=== PATIENT | female | born 1965 | race Two or more races ===

== ENCOUNTER 2018-02-21 12:29 | Outpatient (CLI) | payer OTHER | END 2018-02-21 12:51 | disposition home or self-care (01) | LOC: MAMO-SONO 12:29 | DX: Z12.31 Encounter for screening mammogram for malignant neoplasm of breast (principal); E66.8 Other obesity; E03.8 Other specified hypothyroidism; I10 Essential (primary) hypertension ==

== ENCOUNTER 2020-06-07 10:39 | Outpatient (CLI) | payer OTHER | END 2020-06-07 11:31 | disposition home or self-care (01) | LOC: TOM 10:39 | PROVIDERS: ATTEND Internal Medicine Sports Medicine | DX: Q33.0 Congenital cystic lung (principal); N64.59 Other signs and symptoms in breast; C73 Malignant neoplasm of thyroid gland; R05 Cough ==

== ENCOUNTER → 2020-11-05 08:00 | Outpatient (CLI) | payer OTHER ==
[~2020-11-05 08:00] MED LIST: SYNTHROID112 MCG PO
== END | disposition home or self-care (01) ==
LOC: LAB 08:00 → ADM 09:30 → CIR.AMB 11-11 09:30 → EDSTATUS 11-11 09:30 → CIR.AMB 11-11 12:15
PROVIDERS: ATTEND Orthopaedic Surgery
DX: I10 Essential (primary) hypertension (principal); M77.11 Lateral epicondylitis, right elbow; Z03.818 Encounter for observation for suspected exposure to other biological agents ruled out; M67.931 Unspecified disorder of synovium and tendon, right forearm; M24.821 Other specific joint derangements of right elbow, not elsewhere classified

== ENCOUNTER 2021-01-21 12:57 | Outpatient (CLI) | payer OTHER | END 2021-01-21 13:13 | disposition home or self-care (01) | LOC: TOM 12:57 | PROVIDERS: ATTEND Internal Medicine Sports Medicine | DX: K76.89 Other specified diseases of liver (principal); Q33.0 Congenital cystic lung ==

== ENCOUNTER 2023-06-02 14:56 | Emergency (ER) | payer OTHER ==
[~2023-06-02] VITALS: Ht 167.6 cm; Wt 56.7 kg
[2023-06-02] MEDS ORDERED: TRAMADOL HCL 50 MG TABLET PO STA (17:58)
[2023-06-02 18:22] LABS: PH,URINE 6.5 (5.0-8.0); URINE APPEARANCE Clear; URINE BILIRRUBIN Negative (NEGATIVE); URINE BLOOD Negative; URINE COLOR Yellow; URINE GLUCOSE Negative (NEGATIVE); URINE LEUKOCYTE Negative; URINE NITRATE Negative; URINE PROTEIN Negative (NEGATIVE); URINE UROBILINOGEN 0.2 E.U./dl
[2023-06-02 18:23] LABS: HEMATOCRIT 40.6 % (36.0-45.00); HEMOGLOBIN 13.7 g/dL (12.0-15.00); MEAN CELL VOLUME 93.1 fL (80.00-100.00); MEAN CORPUSCULAR HEMOGLOBIN 31.5 pg (27.00-32.0); MEAN CORPUSCULAR HGB CONC 33.9 g/dl (32.0-36.0); PLATELET COUNT 234 K/uL (150-450); RED BLOOD COUNT 4.36 M/uL (4.00-6.00); RED CELL DISTRIBUTION WIDTH 14.2 % (11.5-14.5)
[2023-06-02 18:27] LABS: URINE BACTERIA 99.4 uL (0.0-1933); URINE WBC 2.6 uL (0.0-23.2)
[2023-06-02] MEDS ORDERED: LACTOBACILLUS ACIDOPHILUS 1 CAP CAP PO STA (18:38)
[2023-06-02 18:52] LABS: BILIRUBIN TOTAL 0.16 mg/dL (0.3-1.2); CALCIUM 9.1 mg/dL (8.5-10.1); CREATININE SERUM 0.97 mg/dL (0.55-1.02); GFR 58.78; GLOBULINA 3.7 G/DL (2.4-3.5); POTASSIUM 4.35 mEq/L (3.5-5.1); TOTAL PROTEIN 7.7 gm/dL (6.4-8.2)
[2023-06-02 19:05] LABS: INR 0.94; PARTIAL THROMBOPLASTIN TIME 28.8 SECONDS (22.0-34.0); PROTHROMBIN TIME 9.9 SECONDS (9.0-11.5)
== END 2023-06-02 19:51 | disposition home or self-care (01) ==
LOC: ER 14:56
PROVIDERS: General Practice
DX: R31.9 Hematuria, unspecified (principal); Z88.2 Allergy status to sulfonamides

== ENCOUNTER 2023-07-26 10:20 | Outpatient (CLI) | payer OTHER | END 2023-07-26 14:36 | disposition home or self-care (01) | LOC: TOM 10:20 | PROVIDERS: ATTEND Internal Medicine | DX: I10 Essential (primary) hypertension (principal); E03.9 Hypothyroidism, unspecified; E66.8 Other obesity; N39.0 Urinary tract infection, site not specified; Z77.22 Contact with and (suspected) exposure to environmental tobacco smoke (acute) (chronic) ==